=== PATIENT | female | born 1995 | race Two or more races ===

== ENCOUNTER 2017-03-11 18:13 | Emergency (ER) | payer OTHER ==
[~2017-03-11] VITALS: Ht 162.6 cm; Wt 53.9 kg
[~2017-03-11 18:13] MED LIST: DOCUSATE SODIU100 MG PO; ENDOCET 5-3251 EACH PO; FERROUS SULFAT325 MG PO; FLINTSTONES M100 MCG PO; IBUPROFEN800 MG PO; NOHOMEMEDS; TUMS500 MG PO; ZANTAC150 MG PO; ZOFRAN4 MG PO; ZOLOFT50 MG PO
[2017-03-11 18:49] VITALS: BP 125/69
[2017-03-11 19:30] LABS: HEMATOCRIT 42.8 % (36.0-46.0); MCH 31.3 PG (29.0-34.0); MCHC 33.6 G/DL (30.0-36.0); MEAN PLAT.VOLUME 9.7 uM^3 (9.5-12.4); PLATELET COUNT 235 K/uL (156-360); RBC DIS.WIDTH-CV 12.6 % (11.8-14.6); RBC DIS.WIDTH-SD 42.8 % (39-53); WHITE BLOOD COUNT 5.6 K/uL (4.1-10.2)
[2017-03-11 19:51] LABS: CHLORIDE 108 mEq/L (99-109); POTASSIUM 4.1 mEq/L (3.7-5.4); SODIUM 138 mEq/L (136-147)
[2017-03-11 19:53] LABS: GLUCOSE 65 mg/dL (70-99)
[2017-03-11 19:55] LABS: ANION GAP 7 MEQ/L (2-14); TOTAL BILIRUBIN 0.2 mg/dL (0.0-1.0)
[2017-03-11 19:57] LABS: ALKALINE PHOSPHATASE 59 IU/L (3-129); GFR ESTIMATE (CALCULATED) > 59 mL/min/
[2017-03-11 19:58] LABS: UREA NITROGEN (BUN) 16 mg/dL (9-23)
[2017-03-11 20:00] LABS: LIPASE 31 U/L (1.0-51.0)
[2017-03-11 20:07] LABS: QUANTITATIVE HCG < 4.0 MIU/ML
[2017-03-11 21:17] LABS: ADD MIUA? NO; BILIRUBIN NEGATIVE; BLOOD NEGATIVE; COLOR YELLOW ((YELLOW)); GLUCOSE (STRIP) NEGATIVE; KETONES NEGATIVE; LEUKOCYTES NEGATIVE; NITRITE NEGATIVE; PROTEIN (STRIP) NEGATIVE; SPECIFIC GRAVITY 1.026 (1.000-1.030); UCUL ADDED? NO
[2017-03-11] MEDS ORDERED: PEPCID20 MG PO (21:26)
== END 2017-03-11 22:39 | disposition home or self-care (01) ==
LOC: EME 18:13
DX: R10.9 Unspecified abdominal pain (principal); K21.9 Gastro-esophageal reflux disease without esophagitis; F17.200 Nicotine dependence, unspecified, uncomplicated
CPT/HCPCS: 74000; 80053; 81003; 83690; 84702; 85027; 99281; 99284

== ENCOUNTER → 2017-04-21 | Outpatient (CLI) | payer OTHER ==
[~2017-04-21] MED LIST changes: +PEPCID20 MG PO
== END | disposition home or self-care (01) ==
LOC: CDC 15:39
DX: R94.31 Abnormal electrocardiogram [ECG] [EKG] (principal)
CPT/HCPCS: 93000

== ENCOUNTER 2017-07-23 21:04 | Emergency (ER) | payer OTHER ==
[~2017-07-23] VITALS: Ht 162.6 cm; Wt 51.6 kg
[2017-07-23 22:42] LABS: HEMATOCRIT 39.2 % (36.0-46.0); HEMOGLOBIN 13.3 G/DL (11.9-15.5); MCH 30.4 PG (29.0-34.0); MCHC 33.9 G/DL (30.0-36.0); MCV 89.7 FL (83-99); PLATELET COUNT 324 K/uL (156-360); RBC DIS.WIDTH-CV 12.5 % (11.8-14.6); RBC DIS.WIDTH-SD 41.1 % (39-53); RED BLOOD COUNT 4.37 M/uL (3.80-5.20); WHITE BLOOD COUNT 9.7 K/uL (4.1-10.2)
[2017-07-23 22:51] LABS: ALBUMIN 4.3 g/dL (3.2-4.8); CHLORIDE 103 mEq/L (99-109); POTASSIUM 3.7 mEq/L (3.7-5.4); SODIUM 137 mEq/L (136-147)
[2017-07-23 22:53] LABS: GLUCOSE 99 mg/dL (70-99)
[2017-07-23 22:54] LABS: TOTAL PROTEIN 7.3 g/dL (6.4-8.3)
[2017-07-23 22:55] LABS: TOTAL BILIRUBIN 0.3 mg/dL (0.0-1.0)
[2017-07-23 22:57] LABS: ALKALINE PHOSPHATASE 63 IU/L (3-129); CREATININE 0.7 mg/dL (0.6-1.3); GFR ESTIMATE (CALCULATED) > 59 mL/min/
[2017-07-23 22:58] LABS: UREA NITROGEN (BUN) 10 mg/dL (9-23)
[2017-07-23 22:59] LABS: AST (GOT) 19 IU/L (2-34); DIRECT BILIRUBIN 0.2 mg/dL (0.0-0.3)
[2017-07-23 23:00] LABS: ALT (GPT) 19 IU/L (3-49)
[2017-07-23 23:01] LABS: LIPASE 15 U/L (1.0-51.0)
[2017-07-23 23:07] LABS: QUANTITATIVE HCG < 4.0 MIU/ML
[2017-07-23 23:49] LABS: APPEARANCE CLEAR ((CLEAR)); BILIRUBIN NEGATIVE; BLOOD NEGATIVE; COLOR YELLOW ((YELLOW)); GLUCOSE (STRIP) NEGATIVE; KETONES 20; LEUKOCYTES NEGATIVE; NITRITE NEGATIVE; PROTEIN (STRIP) 30; SPECIFIC GRAVITY 1.025 (1.000-1.030); UROBILINOGEN 0.2 MG/DL (0.2-1.0)
[2017-07-24] MEDS ORDERED: BENTYL20 MG PO (01:31)
[2017-07-24] MEDS ORDERED: ZOFRAN ODT8 MG PO (01:31)
[2017-07-24 02:17] VITALS: BP 115/77
== END 2017-07-24 02:18 | disposition home or self-care (01) ==
LOC: EME 21:04
PROVIDERS: Physician Assistant
DX: R10.10 Upper abdominal pain, unspecified (principal); R11.2 Nausea with vomiting, unspecified; K21.9 Gastro-esophageal reflux disease without esophagitis; F17.200 Nicotine dependence, unspecified, uncomplicated
CPT/HCPCS: 80048; 80076; 81003; 83690; 84702; 85027; 99281; 99284; J0500